=== PATIENT | female | born 1975 | race Caucasian/White ===

== ENCOUNTER 2020-02-27 09:24 | Emergency (ER) | payer MEDICAID ==
[~2020-02-27] VITALS: Ht 162.6 cm; Wt 86.2 kg
[2020-02-27 09:31] VITALS: Ht 162.6 cm; Wt 86.2 kg
[2020-02-27 11:56] VITALS: BP 134/72
== END 2020-02-27 11:56 | disposition home or self-care (01) ==
LOC: ED 09:24
DX: S83.92XA Sprain of unspecified site of left knee, initial encounter (principal); Z98.890 Other specified postprocedural states; X58.XXXA Exposure to other specified factors, initial encounter; Y93.89 Activity, other specified; Y92.89 Other specified places as the place of occurrence of the external cause; Y99.8 Other external cause status
CPT/HCPCS: J1885; Q0092